=== PATIENT | female | born 1985 | race Two or more races ===

== ENCOUNTER 2024-04-26 13:44 | Emergency (ER) | payer MEDICAID ==
[~2024-04-26] VITALS: Ht 170.2 cm; Wt 60.0 kg
[2024-04-26 13:46] VITALS: O2SAT 98
[2024-04-26] MEDS: SODIUM CHLORIDE 0.9% 1,000 ML IV ONE (14:56)
[2024-04-26] MEDS: ONDANSETRON HCL 4MG/2ML INJ IV STA (14:56)
[2024-04-26] MEDS: FAMOTIDINE 20MG/2ML VIAL IV STA (14:56)
[2024-04-26 15:15] LABS: CLARITY URINE CLEAR (CLEAR); COLOR URINE YELLOW (YELLOW); GLUCOSE URINE NEGATIVE (NEGATIVE); KETONES URINE 3+ (NEGATIVE); LEUKOCYTE ESTERASE URINE NEGATIVE (NEGATIVE); NITRITE URINE NEGATIVE (NEGATIVE); OCCULT BLOOD URINE TRACE (NEGATIVE); PH URINE 5.5 (4.5-8.0); PROTEIN URINE 1+ (NEGATIVE); SPECIFIC GRAVITY URINE 1.024 (1.005-1.030); UROBILINOGEN URINE 0.2 E.U./dL (0.2-1.0)
[2024-04-26 15:40] LABS: BACTERIA URINE 1+; SQUAMOUS EPITHELIAL CELL URINE 2+ /lpf (RARE/1+); WBC URINE 0-2 /hpf (0-2)
[2024-04-26 16:52] LABS: HEMATOCRIT. 34.7 % (36.0-48.0); HEMOGLOBIN. 10.5 g/dL (12.0-16.0); MEAN CORPUSCULAR HEMOGLOBIN 26.3 pg (28.0-32.0); MEAN CORPUSCULAR HGB CONC 30.4 g/dL (31.0-37.0); MEAN CORPUSCULAR VOLUME 86.6 fL (81.0-99.0); MEAN PLATELET VOLUME 8.5 fl (7.4-10.4); PLATELET 398 x1000/uL (130-400); RED CELL DISTRIBUTION WIDTH 20.5 % (11.6-14.6); WHITE BLOOD COUNT 11.3 x1000/uL (4.5-11.0)
[2024-04-26 16:53] LABS: DIFFERENTIAL COMMENT 1
[2024-04-26 16:56] LABS: CHLORIDE 110 mEq/L (98-107); POTASSIUM 4.3 mEq/L (3.5-5.1); SODIUM 141 mEq/L (136-145)
[2024-04-26 16:58] LABS: CALCIUM 10.4 mg/dL (8.7-10.4); CARBON DIOXIDE 17 mEq/L (21-32)
[2024-04-26 17:01] LABS: INR 0.9; PROTHROMBIN TIME 10.6 sec (9.6-11.0)
[2024-04-26 17:03] LABS: CREATININE 0.7 mg/dL (0.6-1.0); GLUCOSE 68 mg/dL (70-105); UREA NITROGEN BLOOD 12 mg/dL (9-23)
[2024-04-26 17:04] LABS: ALANINE AMINOTRANSFERASE 30 IU/L (10-49); HCG SCREEN NEGATIVE
[2024-04-26 17:05] LABS: ALBUMIN 5.2 g/dL (3.2-4.8); ASPARTATE AMINOTRANSFERASE 46 IU/L (<34); BILIRUBIN DIRECT 0.2 mg/dL (<=3.0); BILIRUBIN TOTAL 0.6 mg/dL (0.1-1.0); PROTEIN TOTAL 8.1 g/dL (6.0-8.3)
[2024-04-26 17:06] LABS: B-HCG QUANTITATIVE < 1 mIU/mL (<3)
[2024-04-26 17:09] LABS: ANISOCYTOSIS 2+; PLATELET ESTIMATE NORMAL
[2024-04-26] MEDS: DEXT 5%/0.45% NACL KCL 20MEQ/L 1,000 ML IV ONE (18:45)
[2024-04-26 19:30] VITALS: TEMP 36.94740
[2024-04-26 21:30] VITALS: BP 139/61; PULSE 74; RESP 18; O2SAT 100
== END 2024-04-26 21:55 | disposition left against medical advice (07) ==
LOC: ER 13:55 → EDBEDREQTM 17:15 → EDBEDREQ 17:15 → ER 21:55 → CANBEDREQ 22:30
DX: N93.9 Abnormal uterine and vaginal bleeding, unspecified (principal); F41.9 Anxiety disorder, unspecified; Z88.5 Allergy status to narcotic agent; Z88.6 Allergy status to analgesic agent
CPT/HCPCS: 80076; 80048; 81003; 81025; 84703; 84702; 83690; 83735; 85025; 85610; 86850; 86900; 86901; 36415; 74176; 76830; 76856; 96361; 96365; 96375; 99285; J3490; J2405; J7030; Z7610 ×3